=== PATIENT | male | born 1985 ===

== ENCOUNTER 2021-07-04 12:00 | Emergency (ER) | payer OTHER ==
[2021-07-04] MEDS ORDERED: Dextrose 5%-0.9% NaCl 1,000 ML IV SCH (12:15)
[2021-07-04] MEDS ORDERED: Metoclopramide 10 MG/2 ML SDV IVPUSH ONE (12:15)
[2021-07-04] MEDS ORDERED: HYDROmorphone 1 MG/ML Syringe IVPUSH ONE (12:15)
[2021-07-04] MEDS ORDERED: Ketorolac 30 MG/ML SDV IVPUSH SCH (12:30)
[2021-07-04] MEDS ORDERED: HYDROmorphone 0.5 MG/0.5 ML Syringe IVPUSH ONE (13:30)
== END 2021-07-04 14:12 | disposition home or self-care (01) ==
LOC: JD.ED 12:00
DX: R10.83 Colic (principal)
CPT/HCPCS: 74176; 96374; 96375; 96376; 99284; J1170; J1885; J2765; J7042